=== PATIENT | male | born 1990 | race Caucasian/White ===

== ENCOUNTER 2017-08-06 21:21 | Emergency (ER) | payer OTHER ==
--- NOTE | 2017-08-06 21:30 | EDM.PDOC ---
ED HPI GENERAL MEDICAL PROBLEM - General Chief Complaint: Chest Pain Stated Complaint: CHEST PAIN,HARD BREATHING Time Seen by Provider: 08/06/17 21:30 Source of Information: Reports: Patient - History of Present Illness INITIAL COMMENTS - FREE TEXT/NARRATIVE: HISTORY AND PHYSICAL: History of present illness: []Patient with history of pericarditis presents to ER by private vehicle in no distress. He does have some chest discomfort similar to previous symptoms per patient rates pain 3 out of 10 that began this morning although today his pain is worse on deep inspiration he does have tenderness along the left sternal border as well as right sternal border and along the lower rib margins no fever nausea vomiting diarrhea constipation shortness breath headache dizziness or palpitation no bowel or urine symptoms patient denies trauma to the chest Patient is well groomed and in no distress whatsoever Review of systems: As per history of present illness and below otherwise all systems reviewed and negative. Past medical history: As per history of present illness and as reviewed below otherwise noncontributory. Surgical history: As per history of present illness and as reviewed below otherwise noncontributory. Social history: No reported history of drug or alcohol abuse. Family history: As per history of present illness and as reviewed below otherwise noncontributory. Physical exam: HEENT: Atraumatic, normocephalic, pupils reactive, negative for conjunctival pallor or scleral icterus, mucous membranes moist, throat clear, neck supple, nontender, trachea midline. Lungs: Clear to auscultation, breath sounds equal bilaterally, chest wall tenderness along sternal border right and left and lower rib margins Heart: S1S2, regular, negative for clicks, rubs, or JVD. There is no change with supine or leaning forward Abdomen: Soft, nondistended, nontender. Negative for masses or hepatosplenomegaly. Negative for costovertebral tenderness. Pelvis: Stable nontender. Genitourinary: Deferred. Rectal: Deferred. Extremities: Atraumatic, negative for cords or calf pain. Neurovascular unremarkable. Neuro: Awake, alert, oriented. Cranial nerves II through XII unremarkable. Cerebellum unremarkable. Motor and sensory unremarkable throughout. Exam nonfocal. Diagnostics: Chest x-ray on file performed Lab as below EKG Therapeutics: []Aspirin 324 mg chewable Ibuprofen 400 mg 3 times daily 7-10 days Medrol Dosepak Impression: []There is EKG evidence of pericarditis Clinically it appears to be more costochondritis Definitive disposition and diagnosis as appropriate pending reevaluation and review of above. chest Pain Score (Numeric/FACES): 8 - Related Data Allergies Allergy/AdvReac Type Severity Reaction Status Date / Time No Known Allergies Allergy Verified 08/06/17 21:28 Home Meds: Home Meds . [No Known Home Meds] 08/06/17 [History] ED ROS GENERAL - Review of Systems Review Of Systems: ROS reveals no pertinent complaints other than HPI. ED EXAM, GENERAL - Physical Exam Exam: See Below Course - Vital Signs Last Recorded V/S: Last Vital Signs Temp 37.2 C 08/06/17 21:29 Pulse 105 H 08/06/17 21:29 Resp 16 08/06/17 21:29 BP 127/75 08/06/17 21:29 Pulse Ox 96 08/06/17 21:29 - Orders/Labs/Meds Orders: Active Orders 24 hr Category Date Time Status EKG 12 Lead [EKG Documentation Completion] [RC] STAT Care 08/06/17 21:34 Active Chest 1V Frontal [CR] Stat Exams 08/06/17 21:37 Taken UA W/MICROSCOPIC [URIN] Stat Lab 08/06/17 21:29 Ordered Labs: Laboratory Tests 08/06/17 08/06/17 08/06/17 Range/Units 21:37 21:37 21:37 WBC 10.46 (4.0-11.0) K/uL RBC 4.61 (4.50-5.90) M/uL Hgb 15.1 (13.0-17.0) g/dL Hct 41.1 (38.0-50.0) % MCV 89.2 (80.0-98.0) fL MCH 32.8 H (27.0-32.0) pg MCHC 36.7 (31.0-37.0) g/dL RDW Std Deviation 39.7 (28.0-62.0) fl RDW Coeff of Meet 12 (11.0-15.0) % Plt Count 174 (150-400) K/uL MPV 10.90 (7.40-12.00) fL Neut % (Auto) 49.9 (48.0-80.0) % Lymph % (Auto) 33.6 (16.0-40.0) % Alfalfa % (Auto) 7.5 (0.0-15.0) % Eos % (Auto) 8.7 H (0.0-7.0) % Baso % (Auto) 0.3 (0.0-1.5) % Neut # (Auto) 5.2 (1.4-5.7) K/uL Lymph # (Auto) 3.5 H (0.6-2.4) K/uL Alfalfa # (Auto) 0.8 (0.0-0.8) K/uL Eos # (Auto) 0.9 H (0.0-0.7) K/uL Baso # (Auto) 0.0 (0.0-0.1) K/uL Nucleated RBC % 0.0 /100WBC Nucleated RBCs # 0 K/uL Sodium 142 (136-146) mmol/L Potassium 3.6 (3.5-5.1) mmol/L Chloride 104 (98-110) mmol/L Carbon Dioxide 26 (21-31) mmol/L BUN 15 (6.0-23.0) mg/dL Creatinine 1.0 (0.6-1.5) mg/dL Est Cr Clr Drug Dosing 109.25 mL/min Estimated GFR (MDRD) > 60.0 ml/min Glucose 107 (60-110) mg/dL Calcium 9.2 (8.8-10.8) mg/dL Total Bilirubin 0.7 (0.1-1.5) mg/dL AST 19 (5-40) IU/L ALT 12 (8-54) IU/L Alkaline Phosphatase 43 (40-150) Creatine Kinase 82 (9-236) IU/L CK-MB (CK-2) 0.8 (0-6.6) ng/ml Troponin I < 0.10 (0.0-0.29) NG/ML C-Reactive Protein 0.87 H (0.0-0.5) mg/dL Total Protein 7.2 (6.0-8.0) g/dL Albumin 4.4 (3.5-5.0) g/dL Globulin 2.8 (2.0-3.5) g/dL Albumin/Globulin Ratio 1.6 (1.3-2.8) Meds: Medications Discontinued Medications Generic Name Dose Route Start Last Admin Trade Name Feli PRN Reason Stop Dose Admin Aspirin 324 mg 08/06/17 21:36 08/06/17 21:42 Aspirin PO 08/06/17 21:37 324 mg ONETIME ONE Administration Departure - Departure Time of Disposition: 22:42 Disposition: Home, Self-Care 01 Condition: Good Clinical Impression: Costochondritis - Discharge Information Referrals: PCP,None [Primary Care Provider] - Forms: ED Department Discharge Additional Instructions: Ibuprofen 400 mg 3 times daily 7-10 days Medrol Dosepak Return if symptoms persist or worsen or new concerning symptoms develop Follow-up with primary care next Saturday or Saturday ER referral will be provided [facility] [address] [place] [address] The following information is given to patients seen in the emergency department who are being discharged to home. This information is to outline your options for follow-up care. We provide all patients seen in our emergency department with a follow-up referral. The need for follow-up, as well as the timing and circumstances, are variable depending upon the specifics of your emergency department visit. If you don't have a primary care physician on staff, we will provide you with a referral. We always advise you to contact your personal physician following an emergency department visit to inform them of the circumstance of the visit and for follow-up with them and/or the need for any referrals to a consulting specialist. The emergency department will also refer you to a specialist when appropriate. This referral assures that you have the opportunity for follow-up care with a specialist. All of these measure are taken in an effort to provide you with optimal care, which includes your follow-up. Under all circumstances we always encourage you to contact your private physician who remains a resource for coordinating your care. When calling for follow-up care, please make the office aware that this follow-up is from your recent emergency room visit. If for any reason you are refused follow-up, please contact the [facility] emergency department at and asked to speak to the emergency department charge nurse. - My Orders Last 24 Hours: My Active Orders 08/06/17 21:29 UA W/MICROSCOPIC [URIN] Stat 08/06/17 21:34 EKG 12 Lead [EKG Documentation Completion] [RC] STAT 08/06/17 21:37 Chest 1V Frontal [CR] Stat - Assessment/Plan Last 24 Hours: My Active Orders 08/06/17 21:29 UA W/MICROSCOPIC [URIN] Stat 08/06/17 21:34 EKG 12 Lead [EKG Documentation Completion] [RC] STAT 08/06/17 21:37 Chest 1V Frontal [CR] Stat
[2017-08-06 21:33] VITALS: BP 127/75
[2017-08-06] MEDS ORDERED: Aspirin 81 MG Tab.Chew PO ONE (21:36)
[2017-08-06 22:04] LABS: CHLORIDE,CL 104 mmol/L (98-110); SODIUM,NA 142 mmol/L (136-146)
--- NOTE | 2017-08-07 10:27 | CR ---
EXAM DATE: 08/06/17 PATIENT'S AGE: 27 Patient: BRIANNE SAHU Facility: [place], [place] Site . Site : 1990 Study: XRay Chest [id number]/26/2017 9:59:39 PM Ordering Physician: Nando Albarado Final Report: INDICATION: CHEST PAIN, SOB TECHNIQUE: Chest 1 view COMPARISON: None FINDINGS: Cardiovascular and mediastinum: Heart size and vasculature are normal in caliber and appearance. Mediastinum is within normal limits. Lungs and pleural space: No focal consolidation. No sign of pleural effusion. No pneumothorax. Bones and soft tissues: No significant findings. IMPRESSION: No acute cardiopulmonary disease. Dictated by Casa Krishnamurthy MD @ 08/06/2017 10:21:00 PM Dictated by: Casa Krishnamurthy MD @ 08/06/2017 22:21:03 (Electronic Signature) Report Signed by Proxy. [facility]
== END 2017-08-06 22:56 | disposition home or self-care (01) ==
LOC: MW.ED 21:21
DX: M94.0 Chondrocostal junction syndrome [Tietze] (principal)
CPT/HCPCS: 36415; 71010; 80053; 82550; 82553; 84484; 85025; 86140; 93005; 99285; A9270; 99282